=== PATIENT | female | born 1935 | race Caucasian/White ===

== ENCOUNTER 2017-04-02 16:05 | Emergency (ER) | payer OTHER ==
[~2017-04-02] VITALS: Ht 162.6 cm; Wt 49.9 kg
--- NOTE | ~2017-04-02 | EKG ---
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 : 1935 Requested By: Jace Landers Order Number: [id number] MD: Nomi Umanzor Measurements Intervals [place] Rate: 93 P: 26 MO: 134 QRS: -32 QRSD: 91 T: 8 QT: 368 QTc: 458 Interpretive Statements Sinus rhythm Consider right atrial enlargement Left axis deviation Low voltage, precordial leads Compared to ECG 04/02/2017 16:42:57 Low QRS voltage now present Short MO interval no longer present Myocardial infarct finding no longer present Electronically Signed On 04-03-2017 19:08:52 MARKETING REPRESENTATIVE by Nomi Umanzor [email or web address] <ELECTRONICALLY SIGNED> By: Nomi Umanzor MD 04/03/17 1908 1739 1739 Nomi Umanzor MD /EPI
--- NOTE | ~2017-04-02 | EKG ---
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 : 1935 Requested By: Jace Landers Order Number: [id number] MD: Bj Rios Measurements Intervals [place] Rate: 85 P: 35 PA: 70 QRS: -38 QRSD: 101 T: -74 QT: 519 QTc: 618 Interpretive Statements Sinus rhythm Short PA interval Left axis deviation Probable anteroseptal infarct, old Nonspecific ST segment abnormalities Compared to ECG 04/03/2014 13:21:21 Myocardial infarct finding still present T-wave abnormality still present Possible ischemia still present Electronically Signed On 04-03-2017 9:24:05 PASTEURIZER HELPER by Bj Rios [email or web address] <ELECTRONICALLY SIGNED> By: Bj Rios MD 04/03/17 0924 41 41 Bj Rios MD /EPI
[~2017-04-02 16:05] MED LIST: AMBIEN 5 MG TABL5 M1 PO; ASPIRIN325 PO; B COMPLEX # 11 EACH PO; BETADINE240 ML TOP; CEFTIN 250 MG250 MG PO; COREG3.125 MG PO; FUROSEMIDE 20 M20 MG PO; GENTAMICIN 0.1%15 G2 TOP; HYDROCODONE-AP1 EAC6 PO; IBUPROFEN 200200 M1 PO; KEFLEX500 MG PO; KLOR-CON 1010 MEQ PO; SANTYL OINTMENT30 G1 TP
[2017-04-02 17:01] LABS: HEMATOCRIT 33.1 % (37.0-47.0); HEMOGLOBIN 10.9 gm/dL (12.0-15.0); MCH 28.2 pg (26.0-34.0); MCHC 32.9 g/dL (28.0-37.0); MCV 85.8 fL (80.0-100.0); PLATELET COUNT 332 thou/uL (150-400); RBC 3.85 mil/uL (4.20-5.00); RDW 14.1 % (10.5-14.5)
[2017-04-02 17:02] LABS: MANUAL DIFF YES
[2017-04-02 17:03] LABS: WBC 41.4 thou/uL (4.0-11.0)
[2017-04-02 17:12] LABS: CALCIUM 9.2 mg/dL (8.5-10.1); CREATININE 2.4 mg/dL (0.6-1.0); POTASSIUM 4.7 mmol/L (3.5-5.1)
[2017-04-02 17:20] LABS: ALBUMIN 2.5 g/dL (3.4-5.0); DIRECT BILIRUBIN 0.2 mg/dL (<0.1-0.3); TOTAL BILIRUBIN 0.4 mg/dL (<0.1-1.0); TOTAL PROTEIN 7.2 g/dL (6.4-8.2)
[2017-04-02 17:20] LABS: URINE BILIRUBIN NEGATIVE (Negative); URINE BLOOD 3+ (Negative); URINE COLOR YELLOW; URINE GLUCOSE-RANDOM* NEGATIVE (Negative); URINE KETONES NEGATIVE (Negative); URINE NITRITE POSITIVE (Negative); URINE PROTEIN (DIPSTICK) 2+ (Negative); URINE SPECIFIC GRAVITY 1.015 (1.005-1.035); URINE UROBILINOGEN 0.2 E.U./dl (0.2-1.0)
[2017-04-02 17:21] LABS: TROPONIN-I 0.8 ng/mL (<0.06)
[2017-04-02 17:23] LABS: ABSOLUTE NEUTROPHILS 36.4 thou/uL (1.4-8.2); METAMYELOCYTES 1 %; TOTAL CELL COUNT 100
[2017-04-02 17:24] LABS: ANISOCYTOSIS 1+; POLYCHROMASIA OCCASIONAL
[2017-04-02 17:27] LABS: BACTERIA >30 Many /HPF (None Seen); CASTS None Seen /LPF (None Seen); CRYSTALS None Seen /LPF (None Seen); SQUAMOUS None Seen /LPF (0-3); URINE RBC 3-10 Few /HPF (0-2); URINE WBC >25 Many /HPF (0-5)
[2017-04-02] MEDS ORDERED: LEVAQUIN 500 M500 M2 PO (18:48)
== END 2017-04-02 19:54 | disposition home or self-care (01) ==
LOC: ER 16:05
PROVIDERS: Nurse Practitioner
DX: E86.0 Dehydration (principal); N39.0 Urinary tract infection, site not specified; I50.9 Heart failure, unspecified; Z90.710 Acquired absence of both cervix and uterus; Z86.73 Personal history of transient ischemic attack (TIA), and cerebral infarction without residual deficits

== ENCOUNTER → 2017-09-18 | Outpatient (CLI) | payer OTHER ==
[~2017-09-18] MED LIST changes: +LEVAQUIN 500 M500 M2 PO
== END ==
LOC: HYPER 09-06 07:06
DX: L97.522 Non-pressure chronic ulcer of other part of left foot with fat layer exposed (principal); S51.011D Laceration without foreign body of right elbow, subsequent encounter; S81.812D Laceration without foreign body, left lower leg, subsequent encounter; Z90.710 Acquired absence of both cervix and uterus; X58.XXXD Exposure to other specified factors, subsequent encounter

== ENCOUNTER → 2017-10-17 | Outpatient (CLI) | payer OTHER | LOC: HYPER 07:02 | DX: L97.522 Non-pressure chronic ulcer of other part of left foot with fat layer exposed (principal); Z90.710 Acquired absence of both cervix and uterus ==

== ENCOUNTER → 2018-01-24 | Outpatient (CLI) | payer OTHER | LOC: HYPER 01-16 07:02 | DX: S91.301D Unspecified open wound, right foot, subsequent encounter (principal); I87.2 Venous insufficiency (chronic) (peripheral); R21 Rash and other nonspecific skin eruption; Z90.710 Acquired absence of both cervix and uterus; W22.8XXD Striking against or struck by other objects, subsequent encounter ==

== ENCOUNTER → 2018-04-18 | Outpatient (CLI) | payer OTHER | LOC: HYPER 02-22 07:08 | DX: L97.522 Non-pressure chronic ulcer of other part of left foot with fat layer exposed (principal); S51.801A Unspecified open wound of right forearm, initial encounter; I87.2 Venous insufficiency (chronic) (peripheral); R54 Age-related physical debility; R21 Rash and other nonspecific skin eruption; Z90.710 Acquired absence of both cervix and uterus; X58.XXXA Exposure to other specified factors, initial encounter; Y93.89 Activity, other specified; Y92.89 Other specified places as the place of occurrence of the external cause; Y99.8 Other external cause status ==

== ENCOUNTER → 2018-08-16 | Outpatient (CLI) | payer OTHER | LOC: HYPER 05-17 09:04 | DX: L97.522 Non-pressure chronic ulcer of other part of left foot with fat layer exposed (principal); I87.2 Venous insufficiency (chronic) (peripheral); R60.0 Localized edema; R54 Age-related physical debility; R21 Rash and other nonspecific skin eruption; Z90.710 Acquired absence of both cervix and uterus ==

== ENCOUNTER → 2018-08-30 | Outpatient (CLI) | payer OTHER | LOC: HYPER 06:58 | DX: L97.522 Non-pressure chronic ulcer of other part of left foot with fat layer exposed (principal); S91.301D Unspecified open wound, right foot, subsequent encounter; I87.2 Venous insufficiency (chronic) (peripheral); R54 Age-related physical debility; R21 Rash and other nonspecific skin eruption; R60.0 Localized edema; Z90.710 Acquired absence of both cervix and uterus; X58.XXXD Exposure to other specified factors, subsequent encounter ==

== ENCOUNTER → 2018-09-20 | Outpatient (CLI) | payer OTHER | LOC: HYPER 06:53 | DX: L97.512 Non-pressure chronic ulcer of other part of right foot with fat layer exposed (principal); S81.811D Laceration without foreign body, right lower leg, subsequent encounter; I87.2 Venous insufficiency (chronic) (peripheral); R54 Age-related physical debility; R21 Rash and other nonspecific skin eruption; Z90.710 Acquired absence of both cervix and uterus; X58.XXXD Exposure to other specified factors, subsequent encounter ==

== ENCOUNTER → 2018-10-16 | Outpatient (CLI) | payer OTHER | LOC: HYPER 06:52 | DX: L97.512 Non-pressure chronic ulcer of other part of right foot with fat layer exposed (principal); I87.2 Venous insufficiency (chronic) (peripheral); R60.0 Localized edema; R54 Age-related physical debility; R21 Rash and other nonspecific skin eruption; Z90.710 Acquired absence of both cervix and uterus ==

== ENCOUNTER → 2018-11-13 | Outpatient (CLI) | payer OTHER | LOC: HYPER 10-30 08:24 | DX: L97.512 Non-pressure chronic ulcer of other part of right foot with fat layer exposed (principal); S80.11XA Contusion of right lower leg, initial encounter; I87.2 Venous insufficiency (chronic) (peripheral); R60.0 Localized edema; R54 Age-related physical debility; R21 Rash and other nonspecific skin eruption; Z90.710 Acquired absence of both cervix and uterus; X58.XXXA Exposure to other specified factors, initial encounter; Y93.89 Activity, other specified; Y92.89 Other specified places as the place of occurrence of the external cause; Y99.8 Other external cause status ==

== ENCOUNTER → 2018-12-13 | Outpatient (CLI) | payer OTHER | LOC: HYPER 07:35 | DX: L97.512 Non-pressure chronic ulcer of other part of right foot with fat layer exposed (principal); S80.811D Abrasion, right lower leg, subsequent encounter; I87.2 Venous insufficiency (chronic) (peripheral); R54 Age-related physical debility; R60.0 Localized edema; R21 Rash and other nonspecific skin eruption; Z90.710 Acquired absence of both cervix and uterus; X58.XXXD Exposure to other specified factors, subsequent encounter ==

== ENCOUNTER → 2019-02-28 | Outpatient (CLI) | payer OTHER ==
[~2019-02-28] MED LIST changes: +KEFLEX500 M1 PO
== END ==
LOC: HYPER 08:52
DX: L97.512 Non-pressure chronic ulcer of other part of right foot with fat layer exposed (principal); S81.812A Laceration without foreign body, left lower leg, initial encounter; S80.11XD Contusion of right lower leg, subsequent encounter; S80.811D Abrasion, right lower leg, subsequent encounter; I87.2 Venous insufficiency (chronic) (peripheral); R60.0 Localized edema; R21 Rash and other nonspecific skin eruption; Z90.710 Acquired absence of both cervix and uterus; W22.8XXA Striking against or struck by other objects, initial encounter; Y93.89 Activity, other specified; Y92.89 Other specified places as the place of occurrence of the external cause; Y99.8 Other external cause status

== ENCOUNTER 2019-03-15 22:38 | Emergency (ER) | payer OTHER ==
[~2019-03-15] VITALS: Ht 162.6 cm; Wt 45.4 kg
[~2019-03-15 22:38] MED LIST changes: -KEFLEX500 M1 PO
[2019-03-15 23:38] LABS: ABSOLUTE NEUTROPHILS 4.8 thou/uL (1.4-8.2); BASOPHILS 0.6 % (0.0-2.0); HEMOGLOBIN 11.8 gm/dL (12.0-15.0); LYMPHOCYTES 23.9 % (24.0-44.0); MCHC 32.7 g/dL (28.0-37.0); MCV 88.6 fL (80.0-100.0); MONOCYTES 5.9 % (1.0-8.0); PLATELET COUNT 429 thou/uL (150-400); POLYS 69.6 % (36.0-66.0); RBC 4.07 mil/uL (4.20-5.00); RDW 13.5 % (10.5-14.5); WBC 6.9 thou/uL (4.0-11.0)
[2019-03-15 23:47] LABS: ANION GAP 5 mmol/L (7-16); BUN 42 mg/dL (7-18); CALCIUM 8.9 mg/dL (8.5-10.1); CHLORIDE 93 mmol/L (98-107); CO2 27 mmol/L (21-32); CREATININE 1.1 mg/dL (0.6-1.0); GLUCOSE 125 mg/dL (74-106); POTASSIUM 4.6 mmol/L (3.5-5.1); SODIUM 125 mmol/L (136-145)
[2019-03-16 00:10] LABS: ALBUMIN 2.8 g/dL (3.4-5.0); DIRECT BILIRUBIN < 0.1 mg/dL (<0.1-0.3); SGOT 26 U/L (15-37); SGPT 14 U/L (30-65); TOTAL BILIRUBIN 0.4 mg/dL (<0.1-1.0); TOTAL PROTEIN 7.8 g/dL (6.4-8.2)
[2019-03-16 00:56] LABS: URINE BILIRUBIN NEGATIVE (Negative); URINE BLOOD 2+ (Negative); URINE CLARITY CLOUDY; URINE COLOR YELLOW; URINE GLUCOSE-RANDOM* NEGATIVE (Negative); URINE KETONES NEGATIVE (Negative); URINE NITRITE-REFLEX NEGATIVE (Negative); URINE PROTEIN (DIPSTICK) 2+ (Negative); URINE SPECIFIC GRAVITY 1.015 (1.005-1.035); URINE UROBILINOGEN 0.2 E.U./dl (0.2-1.0)
[2019-03-16 00:57] LABS: URINE LEUKOCYTES-REFLEX 3+ (Negative)
[2019-03-16 01:06] LABS: BACTERIA-REFLEX >30 Many /HPF (None Seen); CASTS None Seen /LPF (None Seen); CRYSTALS None Seen /LPF (None Seen); MUCUS 0-3 Light strn/LPF (None Seen); SQUAMOUS None Seen /LPF (0-3); URINE RBC >20 Many /HPF (0-2); URINE WBC-REFLEX >25 Many /HPF (0-5); WBC CLUMPS Packed (None Seen)
[2019-03-16] MEDS ORDERED: KEFLEX500 M1 PO (02:48)
[2019-03-16 03:16] VITALS: BP 120/84
--- NOTE | 2019-03-16 10:49 | EKG ---
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
== END 2019-03-16 03:16 | disposition home or self-care (01) ==
LOC: ER 22:38
PROVIDERS: Emergency Medicine
DX: N39.0 Urinary tract infection, site not specified (principal); R41.82 Altered mental status, unspecified; I50.9 Heart failure, unspecified; I25.2 Old myocardial infarction; Z79.82 Long term (current) use of aspirin; Z79.899 Other long term (current) drug therapy; Z90.710 Acquired absence of both cervix and uterus; Z86.73 Personal history of transient ischemic attack (TIA), and cerebral infarction without residual deficits

== ENCOUNTER → 2019-03-28 | Outpatient (CLI) | payer OTHER ==
[~2019-03-28] MED LIST changes: +KEFLEX500 M1 PO
== END ==
LOC: HYPER 15:21
DX: L89.892 Pressure ulcer of other site, stage 2 (principal); L97.512 Non-pressure chronic ulcer of other part of right foot with fat layer exposed; S81.811A Laceration without foreign body, right lower leg, initial encounter; S81.812D Laceration without foreign body, left lower leg, subsequent encounter; I87.2 Venous insufficiency (chronic) (peripheral); R21 Rash and other nonspecific skin eruption; R54 Age-related physical debility; Z90.710 Acquired absence of both cervix and uterus; X58.XXXD Exposure to other specified factors, subsequent encounter; X58.XXXA Exposure to other specified factors, initial encounter; Y93.89 Activity, other specified; Y92.89 Other specified places as the place of occurrence of the external cause; Y99.8 Other external cause status

== ENCOUNTER → 2019-05-21 | Outpatient (CLI) | payer OTHER | LOC: HYPER 15:27 | DX: L89.892 Pressure ulcer of other site, stage 2 (principal); L97.512 Non-pressure chronic ulcer of other part of right foot with fat layer exposed; S81.811D Laceration without foreign body, right lower leg, subsequent encounter; S81.812D Laceration without foreign body, left lower leg, subsequent encounter; S80.11XD Contusion of right lower leg, subsequent encounter; S80.812D Abrasion, left lower leg, subsequent encounter; I87.2 Venous insufficiency (chronic) (peripheral); R21 Rash and other nonspecific skin eruption; R54 Age-related physical debility; Z86.14 Personal history of Methicillin resistant Staphylococcus aureus infection; Z90.710 Acquired absence of both cervix and uterus; X58.XXXD Exposure to other specified factors, subsequent encounter ==